=== PATIENT | male | born 1965 | race Caucasian/White ===

== ENCOUNTER 2023-12-14 05:56 | Emergency (ER) | payer BC, SELFPAY | END 2023-12-14 08:35 | disposition home or self-care (01) | LOC: ERS 05:56 | DX: S12.401A Unspecified nondisplaced fracture of fifth cervical vertebra, initial encounter for closed fracture (principal); V86.96XA Unspecified occupant of dirt bike or motor/cross bike injured in nontraffic accident, initial encounter | CPT/HCPCS: 72040; 99284 ==